=== PATIENT | female | born 2000 | race Caucasian/White ===

== ENCOUNTER → 2022-02-01 | Outpatient (CLI) | payer OTHER ==
[~2022-02-01] MED LIST: GASTROGRAFIN SOLUTION 30ML (Q9963) As Ordered ONE; ISOVUE-370 76% 100ML VIAL As Ordered ONE
== END ==
LOC: M RAD 09:53
PROVIDERS: ATTEND Internal Medicine Infectious Disease
DX: A68.9 Relapsing fever, unspecified (principal)
CPT/HCPCS: 71260; 74170; Q9963; Q9967

== ENCOUNTER → 2022-03-15 | Outpatient (REF) | payer OTHER | LOC: M SFHCPLAZ 17:33 | PROVIDERS: ATTEND Internal Medicine Infectious Disease | DX: J06.9 Acute upper respiratory infection, unspecified (principal) ==